=== PATIENT | female | born 1955 | race Two or more races ===

== ENCOUNTER 2022-04-02 12:17 | Day surgery (SDC) | payer OTHER ==
[~2022-04-02] VITALS: Ht 167.6 cm; Wt 65.8 kg
== END 2022-04-02 19:40 | disposition home or self-care (01) ==
LOC: CIR.AMB 12:17
PROVIDERS: ATTEND Surgery Surgery of the Hand
DX: M65.841 Other synovitis and tenosynovitis, right hand (principal); G43.909 Migraine, unspecified, not intractable, without status migrainosus; Z20.822 Contact with and (suspected) exposure to COVID-19

== ENCOUNTER 2022-07-01 05:30 | Day surgery (SDC) | payer OTHER | END 2022-07-01 09:55 | disposition home or self-care (01) | LOC: CIR.AMB 05:30 | PROVIDERS: ATTEND Surgery Surgery of the Hand | DX: M65.842 Other synovitis and tenosynovitis, left hand (principal); Z20.822 Contact with and (suspected) exposure to COVID-19; Z86.010 Personal history of colon polyps; G43.809 Other migraine, not intractable, without status migrainosus ==

== ENCOUNTER 2023-06-02 06:25 | Day surgery (SDC) | payer OTHER | END 2023-06-02 18:40 | disposition home or self-care (01) | LOC: CIR.AMB 06:25 | PROVIDERS: ATTEND Surgery Surgery of the Hand | DX: M18.11 Unilateral primary osteoarthritis of first carpometacarpal joint, right hand (principal) | CPT/HCPCS: 25332; L8699 ==

== ENCOUNTER 2024-09-12 10:45 | Inpatient (IN) | payer OTHER ==
[~2024-09-12] VITALS: Ht 167.6 cm; Wt 62.6 kg
[2024-09-12] MEDS ORDERED: FOSAMAX70 MG PO (12:38)
[2024-09-12 12:46] VITALS: BP 112/70
[2024-09-12 13:20] LABS: RH POSITIVE
[2024-09-18] MEDS ORDERED: CEFAZOLIN SODIUM 1,000 MG VIAL ONE ×2 (09:36→17:02)
[2024-09-18] MEDS ORDERED: METHYLPREDNISOLONE ACETATE 80 MG/ML VIAL ONE (12:19)
[2024-09-18] MEDS ORDERED: BUPIVACAINE HCL/MPF 0.5% 30ML VIAL ONE (12:20)
[2024-09-18] MEDS ORDERED: VANCOMYCIN HCL 1,000 MG VIAL ONE (12:20)
[2024-09-18] MEDS ORDERED: KETOROLAC TROMETHAMINE 60 MG VIAL IM ONE (12:20)
[2024-09-18] MEDS ORDERED: TRANEXAMIC ACID 100MG/1ML (1000MG) AMPUL IV ONE (12:20)
[2024-09-18] MEDS ORDERED: LIDOCAINE HCL 1%/EPINEPHRINE 20ML VIAL IJ ONE (12:21)
[2024-09-18] MEDS ORDERED: ISOPROPYL ALCOHOL 30 ML OUNCE TOP ONE (12:21)
[2024-09-18] MEDS ORDERED: SODIUM CHLORIDE 0.45 % 1,000 ML IV SCH (14:30)
[2024-09-18] MEDS ORDERED: MORPHINE SULFATE 4 MG/ML CARTRIDGE IV PRN (14:30)
[2024-09-18] MEDS ORDERED: ONDANSETRON HCL 2 MG/ML VIAL IV PRN (14:30)
[2024-09-18] MEDS ORDERED: MORPHINE SULFATE 2 MG/ML CARTRIDGE IV NR (14:30)
[2024-09-18] MEDS ORDERED: MORPHINE SULFATE 4 MG/ML VIAL IV ONE ×2 (15:40→16:10)
[2024-09-18] MEDS ORDERED: ONDANSETRON HCL 2 MG/ML VIAL ONE (17:22)
[2024-09-18] MEDS ORDERED: ONDANSETRON HCL 2 MG/ML VIAL IV ONE (17:25)
[2024-09-18] MEDS ORDERED: CEFAZOLIN SODIUM 1,000 MG VIAL IV SCH (18:00)
[2024-09-18 18:43] LABS: HEMATOCRIT 37.5 % (36.0-45.00); HEMOGLOBIN 12.5 g/dL (12.0-15.00); RED BLOOD COUNT 4.16 M/uL (4.00-6.00)
[2024-09-18 19:27] VITALS: BP 122/66; O2SAT 97
[2024-09-18] MEDS ORDERED: GENTAMICIN SULFATE 40 MG/ML VIAL IV SCH (21:00)
[2024-09-19] VITALS: BP 100/56; O2SAT 99
[2024-09-19 06:46] LABS: HEMOGLOBIN 12.8 g/dL (12.0-15.00); MEAN CELL VOLUME 90.2 fL (80.00-100.00); MEAN CORPUSCULAR HEMOGLOBIN 31.2 pg (27.00-32.0); MEAN CORPUSCULAR HGB CONC 34.6 g/dl (32.0-36.0); PLATELET COUNT 147 K/uL (150-450); RED CELL DISTRIBUTION WIDTH 13.1 % (11.5-14.5)
[2024-09-19 08:00] VITALS: BP 132/70; O2SAT 97
[2024-09-19] MEDS ORDERED: ACETAMINOPHEN WITH CODEINE 1 UDTAB TABLET PO PRN (08:30)
[2024-09-19] MEDS ORDERED: SENNA/DOCUSATE SODIUM 1 TAB TABLET PO SCH (09:00)
[2024-09-19] MEDS ORDERED: IRON FUM,PS/FOLIC/BCOMP,C NO.9 1 CAP CAPSULE PO SCH (09:00)
[2024-09-19] MEDS ORDERED: CELECOXIB 200 MG CAPSULE PO SCH (09:00)
[2024-09-19] MEDS ORDERED: RIVAROXABAN 10 MG TAB PO SCH (09:00)
[2024-09-19] MEDS ORDERED: BACITRACIN 28.35 GM OINT.TUBE TOP SCH (09:00)
[2024-09-19] MEDS ORDERED: ACETAMINOPHEN WITH CODEINE 1 UDTAB TABLET PO STA (13:56)
[2024-09-19 14:50] LABS: COVID-19 AG NEGATIVE (NEGATIVE)
[2024-09-19 17:25] VITALS: BP 119/66; O2SAT 96
[2024-09-19 18:30] LABS: ALBUMIN 3.3 gm/dL (3.4-5.0); BILIRUBIN TOTAL 0.87 mg/dL (0.3-1.2); CALCIUM 8.7 mg/dL (8.5-10.1); CREATININE SERUM 0.72 mg/dL (0.55-1.02); GFR 80.31; GLOBULINA 2.9 G/DL (2.4-3.5); POTASSIUM 4.72 mEq/L (3.5-5.1); TOTAL PROTEIN 6.2 gm/dL (6.4-8.2)
[2024-09-20 01:21] VITALS: BP 104/65; O2SAT 99
[2024-09-20] MEDS ORDERED: XARELTO10 MG PO (06:17)
[2024-09-20] MEDS ORDERED: INTEGRA PLUS C1 EACH PO (06:17)
[2024-09-20] MEDS ORDERED: ACETAMINOPHEN-1 EAC2 PO (06:17)
[2024-09-20] MEDS ORDERED: Septra Ds Tablet PO (06:17)
[2024-09-20 06:54] LABS: HEMATOCRIT 34.9 % (36.0-45.00); HEMOGLOBIN 11.9 g/dL (12.0-15.00); MEAN CELL VOLUME 90.8 fL (80.00-100.00); MEAN CORPUSCULAR HEMOGLOBIN 30.9 pg (27.00-32.0); PLATELET COUNT 133 K/uL (150-450); RED BLOOD COUNT 3.84 M/uL (4.00-6.00); RED CELL DISTRIBUTION WIDTH 12.7 % (11.5-14.5)
[2024-09-20 08:00] VITALS: BP 116/72; O2SAT 97
[2024-09-20] MEDS ORDERED: SULFAMETHOXAZOLE/TRIMETHOPRIM DS 1 TAB PO SCH (09:00)
== END 2024-09-20 15:58 | DRG 470 ==
LOC: SURH 09-18 07:06 → O/R 09-18 07:06 → SURH 09-18 10:45
PROVIDERS: ADMIT Orthopaedic Surgery Sports Medicine; ATTEND Orthopaedic Surgery Sports Medicine
PROC: 0SRD0J9 Replacement of Left Knee Joint with Synthetic Substitute, Cemented, Open Approach (ICD-10-PCS; principal; 2024-09-18 16:30)
DX: M17.12 Unilateral primary osteoarthritis, left knee (principal)